=== PATIENT | male | born 2000 | race African-American/Black ===

== ENCOUNTER 2024-11-28 14:20 | Emergency (ER) | payer OTHER ==
[~2024-11-28] VITALS: Ht 167.6 cm; Wt 60.0 kg
--- NOTE | 2024-11-28 14:49 | ED.PDOC ---
HPI (NEURO) HPI Comments 24 y/o M, [id number], with PMHx of seizures presents to the ED for CC of s/p seizure. EMS reports, patient is coming from home where he had a seizure following smoking out of a wax pen. EMS relays, family comments that patient will usually have a seizure following smoking from a wax pen. Patient states, loss of conciseness with new onset urinary incontinence. Patient takes Keppra for his seizure; reports non-compliance for xmonths. Patient denies head injury, cervical injury, dizziness, nausea, or vomiting. No other symptoms or modifying factors present a this time. Time Seen by MD: 14:20 Reviewed Notes: Nurses Notes, Hot Kettle Tender Notes, Medications, Allergies Information Source: Patient, Emergency Med Personnel Mode of Arrival: EMS Severity: Moderate Headache Severity: None Timing: Minutes Duration: Since onset Prehospital treatment: None Seizure Quality: Single Episodes Seizure Location: Generalized Onset: At rest Circumstances: Other (following smoking marijuana) Before: Normal During: LOC, Incontinence (Bladder) After: Normal Mentation History of: Seizure Disorder Modifying factors: Nothing Associated Signs and Symptoms: None Past Medical History PAST MEDICAL HISTORY: Seizures Surgical History (Other): craniotomy Family History Family History: Unknown Social History Smoker: Non-Smoker Alcohol: Denies ETOH Use Drugs: Marijuana Lives In: Home Constitutional: denies: chills, diaphoresis, fatigue, fever, malaise, sweats, weakness, others EENTM: denies: blurred vision, double vision, ear bleeding, ear discharge, ear drainage, ear pain, ear ringing, eye pain, eye redness, hearing loss, mouth reuben n, mouth swelling, nasal discharge, nose bleeding, nose congestion, nose pain, photophobia, tearing, throat pain, throat swelling, voice changes, others Respiratory: denies: cough, hemoptysis, orthopnea, SOB at rest, shortness of breath, SOB with excertion, stridor, wheezing, others Cardiovascular: denies: chest pain, dizzy spells, diaphoresis, Dyspnea on exertion, edema, irregular heart beat, left arm pain, lightheadedness, palpitations, PND, syncope, others Gastrointestinal: denies: abdomen distended, abdominal pain, blood streaked bowels, constipated, diarrhea, dysphagia, difficulty swallowing, hematemesis, melena, nausea, poor appetite, poor fluid intake, rectal bleeding, rectal pain, vomiting, others Genitourinary: reports: incontinence; denies: burning, dysuria, flank pain, frequency, hematuria, penile discharge, penile sore, pain, testicle pain, testicle swelling, urgency, others Neurological: reports: seizure; denies: dizziness, fainting, headache, left sided numbness, left sided weakness, numbness, paresthesia, pre-existing deficit, right sided numbness, right sided weakness, speech problems, tingling, tremors, weakness, others Musculoskeletal: denies: back pain, gout, joint pain, joint swelling, muscle pa in, muscle stiffness, neck pain, others Integumetry: denies: bruises, change in color, change in hair/nails, dryness, laceration, lesions, lumps, rash, wounds, others Allergic/Immunocompromised: denies: Difficulty Healing, Frequent Infections, Hives, Itching, others Hematologic/Lymphatic: denies: anemia, blood clots, easy bleeding, easy bruising, swollen glands, others Endocrine: denies: excessive hunger, excessive sweating, excessive thirst, excessive urination, flushing, intolerance to cold, intolerance to heat, unexplained weight gain, unexplained weight loss, others Psychiatric: denies: anxiety, bipolar disorder, depression, hopeless, panic disorder, schizophrenia, sleepless, suicidal, others All Other Systems: Reviewed and Negative Physical Exam General Appearance: Moderate Distress HEENT: Normal ENT Inspection, Pharynx Normal, TMs Normal Neck: Full Range of Motion, Non-Tender, Normal, Normal Inspection Respiratory: Chest Non-Tender, Lungs Clear, No Accessory Muscle Use, No Respiratory Distress, Normal Breath Sounds Cardiovascular: No Edema, No JVD, No Murmur, No Gallop, Normal Peripheral Pulses, Regular Rate/Rhythm Breast Exam: Deferred Gastrointestinal: No Organomegaly, Non Tender, No Pulsatile Mass, Normal Bowel Sounds, Soft Genitalia: Deferred Pelvic: Deferred Rectal: Deferred Extremities: No calf tenderness, Normal capillary refill, Normal inspection, Normal range of motion, Non-tender, No pedal edema Musculoskeletal : Apperance: Normal Neurologic: Disoriented (Postictal), No Motor Deficits, Normal Mood, No Sensory Deficits Cerebellar Function: NOT DONE Reflexes: NOT DONE Skin: Dry, Normal Color, Warm Peripheral Pulses: 3+ Radial (R), 3+ Radial (L) Lymphatic: No Adenopathy Was a procedure done? Was a procedure done?: No Differential Diagnosis (SZ) Seizure: Psychogenic Seizure, Closed Head Injury, Drug Ingestion, Epilepsy- Break Through, Epilepsy-Status X-Ray, Labs, Meds, VS Vital Signs Date Time Temp Pulse Resp B/P (MAP) Pulse Ox O2 Delivery O2 Flow Rate FiO2 11/28/24 14:25 97.9 72 20 107/68 (81) 100 97.9 11/28/24 14:20 70 Patient slightly disoriented from drug use. Possibly had a seizure prior to coming to the ER. Vitals stable. Answering questions. CT of the head reviewed does not show any acute changes. Chronic changes. Moving all extremities. Reviewed his history pain Explained to the patient. Was told to follow up with his primary care physician. Was told to come back if there is any problem. Time of 1ST Reevaluation: 14:50 Reevaluation 1ST: Improved Patient Education/Counseling: Diagnosis, Treatment Family Education/Counseling: No Family Present Departure 1 Departure Time of Disposition: 15:03 Impression: Primary Impression: Metabolic encephalopathy Additional Impressions: Seizure disorder Subarachnoid hemorrhage Disposition: 02 SHORT TERM HOSPITAL Admit to: Med Surg Condition: Guarded Critical Care Note Critical Care Time?: No Stability Stability form required: No Heart Score Heart Score: Heart Score Response (Comments) Value History N/A 0 EKG N/A 0 Age N/A 0 Risk Factors N/A 0 Troponin N/A 0 Total 0 I personally scribed for AURA MORFIN MD ([email or web address]) on 11/28/24 at 14:49. Electronically submitted by Twila Hernandez ([email or web address]). AURA MORFIN MD November 28, 2024 14:49
--- NOTE | 2024-11-28 15:54 | DVH ---
EXAM: CT Head Without Intravenous Contrast CLINICAL INDICATION: SEIZURE TECHNIQUE: Axial computed tomography images of the head/brain without intravenous contrast. This CT exam was performed using one or more of the following dose reduction techniques: automated exposure control, adjustment of the mA and/or kV according to patient size, and/or use of iterative reconstru ction technique. CONTRAST: RADIATION DOSE: CTDIvol = 61.92 mGy, DLP = 1116.29 mGy-cm COMPARISON: None FINDINGS: BRAIN AND EXTRA-AXIAL SPACES: Ill-defined hypodense lesions of the left frontal lobe with possible overlying hyperdensity along the gyri and emphysema. This may be normal expected postoperative change s. Subtle hyperdensity may result from overlying artifact or small subarachnoid hemorrhage. No midli ne shift. BONES/JOINTS: Craniectomy of the right frontoparietal convexity. No acute fracture. SOFT TISSUES: Unremarkable. SINUSES: Unremarkable as visualized. No acute sinusitis. MASTOID AIR CELLS: Unremarkable as visualized. No mastoid effusion. OTHER FINDINGS: . IMPRESSION: Ill-defined hypodense lesions of the left frontal lobe with possible overlying hyperdensity along th e gyri and emphysema. This may be normal expected postoperative changes. Subtle hyperdensity may res ult from overlying artifact or small subarachnoid hemorrhage. No midline shift.
[2024-11-28] MEDS: SODIUM CHLORIDE 0.9% 1,000 ML IV ONE (17:18)
[2024-11-28 17:42] VITALS: PULSE 61; RESP 17; O2SAT 100
[2024-11-28 17:59] VITALS: BP 110/68; PULSE 73; RESP 15; TEMP 98.3; O2SAT 98
[2024-11-28] MEDS: levETIRAcetam 1000 mg/100ml 100 ML IV ONE (18:01)
--- NOTE | 2024-12-01 13:12 | ECG ---
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
== END 2024-11-28 18:13 | disposition short-term general hospital (02) ==
LOC: EDBD 14:20 → ER 14:20
DX: G93.41 Metabolic encephalopathy (principal); G40.909 Epilepsy, unspecified, not intractable, without status epilepticus; I60.9 Nontraumatic subarachnoid hemorrhage, unspecified; F12.90 Cannabis use, unspecified, uncomplicated; Z98.890 Other specified postprocedural states
CPT/HCPCS: 70450; 82947; 93005; 96361; 96374; 99285; J1953; J7030; 82962